=== PATIENT | female | born 1935 | race Caucasian/White ===

== ENCOUNTER 2020-06-29 15:36 | Inpatient (IN) ==
[2020-07-08] MEDS: *HR* OxyCODONE Immed Rel 5 MG TABLET PO PRN (23:07)
[2020-07-08] MEDS: Gabapentin 100 MG CAPSULE PO SCH (23:07)
[2020-07-09 05:35] LABS: Basophils % 0.1 %; Eosinophils # 0.1 K/mcL (0.0-0.6); Eosinophils % 0.7 %; Hematocrit 26.1 % (35.3-44.9); Hemoglobin 8.5 g/dL (11.5-15.4); Immature Granulocytes % 2.2 % (0-4); Lymphocytes # 1.4 K/mcL (0.6-4.6); Lymphocytes % 11.3 %; Mean Corpuscular HGB Conc 32.6 g/dL (31.6-35.5); Mean Corpuscular Hemoglobin 29.7 pg (28.0-33.3); Mean Corpuscular Volume 91.3 fL (83.0-100.0); Mean Platelet Volume 11.1 fL (9.4-12.4); Monocytes # 0.9 K/mcL (0.0-1.3); Monocytes % 7.6 %; Neutrophils # 9.5 K/mcL (1.6-8.9); Platelet Count 178 K/mcL (140-400); Red Blood Count 2.86 M/mcL (3.82-4.97); Red Cell Distribution Width 14.8 % (11.5-14.5); Segmented Neutrophils % 78.1 %; White Blood Count 12.2 K/mcL (4.3-11.1)
[2020-07-09] MEDS: *HR* Enoxaparin 40 MG/0.4 ML SYRINGE SQ SCH (05:38)
[2020-07-09] MEDS: *HR* OxyCODONE Immed Rel 5 MG TABLET PO PRN ×2 (05:38→13:34)
[2020-07-09 05:54] LABS: Alanine Aminotransferase 11 Units/L (7-52); Albumin 2.5 g/dL (3.5-5.7); Albumin/Globulin Ratio 1.4 (1.1-2.2); Alkaline Phosphatase 28 Units/L (34-104); Aspartate Amino Transferase 13 Units/L (13-39); BUN/Creatinine Ratio 26 (6-26); Bilirubin,Total 1.2 mg/dL (0.3-1.0); Blood Urea Nitrogen 20 mg/dL (8-23); Calcium 8.2 mg/dL (8.6-10.3); Carbon Dioxide 32 mEq/L (23-29); Chloride 101 mEq/L (98-107); Globulin 1.8 g/dL (2.4-3.5); Glucose 103 mg/dL (70-105); Magnesium 1.5 mg/dL (1.6-2.6); Osmolality,Calculated 287 (280-300); Sodium 137 mEq/L (136-145); Total Protein 4.3 g/dL (6.4-8.9); eGFR For African Americans > 60 (> 60); eGFR For Non-African Americans > 60 (> 60)
[2020-07-09] MEDS ORDERED: Magnesium Oxide 400 MG TABLET PO SCH (09:00)
[2020-07-09] MEDS ORDERED: Aspirin Enteric Coated 81 MG Tablet PO SCH (09:00)
[2020-07-09] MEDS: EPA PO SCH (09:21)
[2020-07-09] MEDS: FISH OIL PO SCH (09:21)
[2020-07-09] MEDS: Linaclotide [Linzess] 145 MCG PO SCH (09:21)
[2020-07-09] MEDS: DHA PO SCH (09:21)
[2020-07-09] MEDS: ZINC GLUCONATE 50 MG PO SCH (09:21)
[2020-07-09] MEDS: OMEGA PO SCH (09:21)
[2020-07-09] MEDS: Gabapentin 100 MG CAPSULE PO SCH ×2 (09:22→20:00)
[2020-07-09] MEDS: amLODIPine 5 MG TABLET PO SCH (09:22)
[2020-07-09] MEDS: allopurinoL 100 MG TABLET PO SCH (09:22)
[2020-07-09] MEDS: Cholecalciferol (D-3) 1,000 UNIT (25MCG) TABLET PO SCH (09:22)
[2020-07-09] MEDS: *HR* Metformin 500 MG TABLET PO SCH (09:23)
[2020-07-09] MEDS: Cyanocobalamin (B-12) 1,000 MCG TABLET PO SCH (09:23)
[2020-07-09] MEDS: Ascorbic Acid 500 MG TABLET PO SCH (09:23)
[2020-07-09] MEDS: Multivit/Ca/Min/Fe/FA 1 TAB TABLET PO SCH (09:23)
[2020-07-09] MEDS: Acetaminophen 325 MG TABLET PO PRN (09:34)
[2020-07-09] MEDS: predniSONE 20 MG TABLET PO SCH (17:34)
[2020-07-09] MEDS: Colchicine 0.6 MG TABLET PO SCH (20:00)
[2020-07-09] MEDS: Magnesium Oxide 400 MG TABLET PO SCH (20:01)
[2020-07-10] MEDS: *HR* Enoxaparin 40 MG/0.4 ML SYRINGE SQ SCH (05:30)
[2020-07-10] MEDS: *HR* OxyCODONE Immed Rel 5 MG TABLET PO PRN ×3 (05:32→22:22)
[2020-07-10 07:07] LABS: Basophils % 0.1 %; Hematocrit 28.6 % (35.3-44.9); Hemoglobin 9.3 g/dL (11.5-15.4); Immature Granulocytes % 1.8 % (0-4); Lymphocytes # 0.7 K/mcL (0.6-4.6); Lymphocytes % 7.3 %; Mean Corpuscular HGB Conc 32.5 g/dL (31.6-35.5); Mean Corpuscular Hemoglobin 29.9 pg (28.0-33.3); Mean Platelet Volume 10.9 fL (9.4-12.4); Monocytes # 0.4 K/mcL (0.0-1.3); Monocytes % 4.4 %; Neutrophils # 8.6 K/mcL (1.6-8.9); Platelet Count 198 K/mcL (140-400); Red Blood Count 3.11 M/mcL (3.82-4.97); Segmented Neutrophils % 86.4 %; White Blood Count 9.9 K/mcL (4.3-11.1)
[2020-07-10 07:18] LABS: Alanine Aminotransferase 14 Units/L (7-52); Albumin 2.7 g/dL (3.5-5.7); Albumin/Globulin Ratio 1.2 (1.1-2.2); Alkaline Phosphatase 36 Units/L (34-104); Aspartate Amino Transferase 16 Units/L (13-39); BUN/Creatinine Ratio 28 (6-26); Bilirubin,Total 1.2 mg/dL (0.3-1.0); Blood Urea Nitrogen 24 mg/dL (8-23); Calcium 8.7 mg/dL (8.6-10.3); Carbon Dioxide 34 mEq/L (23-29); Chloride 101 mEq/L (98-107); Globulin 2.3 g/dL (2.4-3.5); Glucose 153 mg/dL (70-105); Magnesium 1.7 mg/dL (1.6-2.6); Osmolality,Calculated 295 (280-300); Potassium 4.7 mEq/L (3.5-5.1); Sodium 139 mEq/L (136-145); eGFR For African Americans > 60 (> 60); eGFR For Non-African Americans > 60 (> 60)
[2020-07-10] MEDS: amLODIPine 5 MG TABLET PO SCH (08:59)
[2020-07-10] MEDS: Cholecalciferol (D-3) 1,000 UNIT (25MCG) TABLET PO SCH (08:59)
[2020-07-10] MEDS: Ascorbic Acid 500 MG TABLET PO SCH (09:00)
[2020-07-10] MEDS: Magnesium Oxide 400 MG TABLET PO SCH ×2 (09:00→22:22)
[2020-07-10] MEDS: allopurinoL 100 MG TABLET PO SCH (09:00)
[2020-07-10] MEDS: Gabapentin 100 MG CAPSULE PO SCH ×2 (09:00→22:22)
[2020-07-10] MEDS: Multivit/Ca/Min/Fe/FA 1 TAB TABLET PO SCH (09:00)
[2020-07-10] MEDS: Colchicine 0.6 MG TABLET PO SCH ×2 (09:01→22:22)
[2020-07-10] MEDS: Cyanocobalamin (B-12) 1,000 MCG TABLET PO SCH (09:01)
[2020-07-10] MEDS: Aspirin Enteric Coated 81 MG Tablet PO SCH (09:01)
[2020-07-10] MEDS: predniSONE 20 MG TABLET PO SCH (09:02)
[2020-07-10] MEDS: *HR* Metformin 500 MG TABLET PO SCH (09:02)
[2020-07-10] MEDS: FISH OIL PO SCH (09:03)
[2020-07-10] MEDS: Linaclotide [Linzess] 145 MCG PO SCH (09:03)
[2020-07-10] MEDS: EPA PO SCH (09:03)
[2020-07-10] MEDS: DHA PO SCH (09:03)
[2020-07-10] MEDS: OMEGA PO SCH (09:03)
[2020-07-10] MEDS: ZINC GLUCONATE 50 MG PO SCH (09:03)
[2020-07-10] MEDS: Acetaminophen 325 MG TABLET PO PRN (10:55)
[2020-07-10] MEDS ORDERED: D5% in Water 1,000 ML IVC PRN (12:55)
[2020-07-10] MEDS ORDERED: *HR* Dextrose 50 % in Water (Vial) 50 ML VIAL IVP PRN (12:55)
[2020-07-10] MEDS ORDERED: Dextrose Gel 15 GM/37.5 ML TUBE PO PRN ×2 (12:55)
[2020-07-10] MEDS: Insulin LISPRO 300 UNITS/3 ML VIAL SQ SCH ×2 (17:02→22:26)
[2020-07-11] MEDS: *HR* Enoxaparin 40 MG/0.4 ML SYRINGE SQ SCH (05:52)
[2020-07-11] MEDS: Insulin LISPRO 300 UNITS/3 ML VIAL SQ SCH ×4 (08:06→20:42)
[2020-07-11] MEDS: Colchicine 0.6 MG TABLET PO SCH ×2 (09:04→20:41)
[2020-07-11] MEDS: predniSONE 20 MG TABLET PO SCH (09:04)
[2020-07-11] MEDS: allopurinoL 100 MG TABLET PO SCH (09:04)
[2020-07-11] MEDS: ZINC GLUCONATE 50 MG PO SCH (09:05)
[2020-07-11] MEDS: Linaclotide [Linzess] 145 MCG PO SCH (09:05)
[2020-07-11] MEDS: OMEGA PO SCH (09:05)
[2020-07-11] MEDS: EPA PO SCH (09:05)
[2020-07-11] MEDS: Gabapentin 100 MG CAPSULE PO SCH ×2 (09:05→20:42)
[2020-07-11] MEDS: FISH OIL PO SCH (09:05)
[2020-07-11] MEDS: amLODIPine 5 MG TABLET PO SCH (09:05)
[2020-07-11] MEDS: *HR* Metformin 500 MG TABLET PO SCH (09:05)
[2020-07-11] MEDS: DHA PO SCH (09:05)
[2020-07-11] MEDS: Multivit/Ca/Min/Fe/FA 1 TAB TABLET PO SCH (12:11)
[2020-07-11] MEDS: Ascorbic Acid 500 MG TABLET PO SCH (12:11)
[2020-07-11] MEDS: Aspirin Enteric Coated 81 MG Tablet PO SCH (12:11)
[2020-07-11] MEDS: Cyanocobalamin (B-12) 1,000 MCG TABLET PO SCH (12:11)
[2020-07-11] MEDS: Magnesium Oxide 400 MG TABLET PO SCH ×2 (12:11→20:42)
[2020-07-11] MEDS: Cholecalciferol (D-3) 1,000 UNIT (25MCG) TABLET PO SCH (12:12)
[2020-07-11] MEDS: *HR* OxyCODONE Immed Rel 5 MG TABLET PO PRN ×2 (14:19→20:50)
[2020-07-11] MEDS: Tolterodine LA (24 HR) 2 MG CAP.ER.24H PO SCH (14:19)
[2020-07-11] MEDS: polyethylene glycoL 3350 17 GM POWD.PACK PO SCH (14:54)
[2020-07-12] MEDS: *HR* OxyCODONE Immed Rel 5 MG TABLET PO PRN ×2 (05:00→20:11)
[2020-07-12] MEDS: *HR* Enoxaparin 40 MG/0.4 ML SYRINGE SQ SCH (05:00)
[2020-07-12] MEDS: Insulin LISPRO 300 UNITS/3 ML VIAL SQ SCH ×4 (08:18→20:09)
[2020-07-12] MEDS: Magnesium Oxide 400 MG TABLET PO SCH ×2 (09:29→20:09)
[2020-07-12] MEDS: amLODIPine 5 MG TABLET PO SCH (09:29)
[2020-07-12] MEDS: Aspirin Enteric Coated 81 MG Tablet PO SCH (09:29)
[2020-07-12] MEDS: Ascorbic Acid 500 MG TABLET PO SCH (09:29)
[2020-07-12] MEDS: Gabapentin 100 MG CAPSULE PO SCH ×2 (09:29→20:09)
[2020-07-12] MEDS: Multivit/Ca/Min/Fe/FA 1 TAB TABLET PO SCH (09:29)
[2020-07-12] MEDS: *HR* Metformin 500 MG TABLET PO SCH (09:29)
[2020-07-12] MEDS: Tolterodine LA (24 HR) 2 MG CAP.ER.24H PO SCH (09:29)
[2020-07-12] MEDS: predniSONE 20 MG TABLET PO SCH (09:30)
[2020-07-12] MEDS: Cholecalciferol (D-3) 1,000 UNIT (25MCG) TABLET PO SCH (09:30)
[2020-07-12] MEDS: Cyanocobalamin (B-12) 1,000 MCG TABLET PO SCH (09:30)
[2020-07-12] MEDS: Colchicine 0.6 MG TABLET PO SCH ×2 (09:30→20:09)
[2020-07-12] MEDS: allopurinoL 100 MG TABLET PO SCH (09:30)
[2020-07-12] MEDS: EPA PO SCH (09:31)
[2020-07-12] MEDS: OMEGA PO SCH (09:31)
[2020-07-12] MEDS: FISH OIL PO SCH (09:31)
[2020-07-12] MEDS: Linaclotide [Linzess] 145 MCG PO SCH (09:31)
[2020-07-12] MEDS: ZINC GLUCONATE 50 MG PO SCH (09:31)
[2020-07-12] MEDS: DHA PO SCH (09:31)
[2020-07-12] MEDS: polyethylene glycoL 3350 17 GM POWD.PACK PO SCH (17:24)
[2020-07-13] MEDS: *HR* Enoxaparin 40 MG/0.4 ML SYRINGE SQ SCH (05:01)
[2020-07-13] MEDS: Insulin LISPRO 300 UNITS/3 ML VIAL SQ SCH ×4 (08:13→20:57)
[2020-07-13] MEDS: allopurinoL 100 MG TABLET PO SCH (09:22)
[2020-07-13] MEDS: amLODIPine 5 MG TABLET PO SCH (09:22)
[2020-07-13] MEDS: predniSONE 20 MG TABLET PO SCH (09:22)
[2020-07-13] MEDS: Gabapentin 100 MG CAPSULE PO SCH ×2 (09:22→20:56)
[2020-07-13] MEDS: Cyanocobalamin (B-12) 1,000 MCG TABLET PO SCH (09:23)
[2020-07-13] MEDS: *HR* Metformin 500 MG TABLET PO SCH (09:23)
[2020-07-13] MEDS: Ascorbic Acid 500 MG TABLET PO SCH (09:23)
[2020-07-13] MEDS: Aspirin Enteric Coated 81 MG Tablet PO SCH (09:23)
[2020-07-13] MEDS: Multivit/Ca/Min/Fe/FA 1 TAB TABLET PO SCH (09:23)
[2020-07-13] MEDS: Tolterodine LA (24 HR) 2 MG CAP.ER.24H PO SCH (09:25)
[2020-07-13] MEDS: Magnesium Oxide 400 MG TABLET PO SCH ×2 (09:25→20:56)
[2020-07-13] MEDS: Cholecalciferol (D-3) 1,000 UNIT (25MCG) TABLET PO SCH (09:25)
[2020-07-13] MEDS: ZINC GLUCONATE 50 MG PO SCH (09:26)
[2020-07-13] MEDS: FISH OIL PO SCH (09:26)
[2020-07-13] MEDS: EPA PO SCH (09:26)
[2020-07-13] MEDS: Linaclotide [Linzess] 145 MCG PO SCH (09:26)
[2020-07-13] MEDS: polyethylene glycoL 3350 17 GM POWD.PACK PO SCH (09:26)
[2020-07-13] MEDS: OMEGA PO SCH (09:26)
[2020-07-13] MEDS: DHA PO SCH (09:26)
[2020-07-13] MEDS: *HR* OxyCODONE Immed Rel 5 MG TABLET PO PRN ×2 (09:36→16:45)
[2020-07-13] MEDS ORDERED: Bisacodyl 10 MG RECTAL SUPPOSITORY RC ONE (15:00)
[2020-07-13] MEDS: Acetaminophen 325 MG TABLET PO PRN (20:56)
[2020-07-14] MEDS: *HR* Enoxaparin 40 MG/0.4 ML SYRINGE SQ SCH (05:57)
[2020-07-14] MEDS ORDERED: Linaclotide [Linzess] 145 MCG PO SCH (06:30)
[2020-07-14] MEDS: Insulin LISPRO 300 UNITS/3 ML VIAL SQ SCH ×4 (07:31→21:47)
[2020-07-14] MEDS: ZINC GLUCONATE 50 MG PO SCH (09:11)
[2020-07-14] MEDS: polyethylene glycoL 3350 17 GM POWD.PACK PO SCH (09:12)
[2020-07-14] MEDS: EPA PO SCH (09:12)
[2020-07-14] MEDS: OMEGA PO SCH (09:12)
[2020-07-14] MEDS: Multivit/Ca/Min/Fe/FA 1 TAB TABLET PO SCH (09:12)
[2020-07-14] MEDS: DHA PO SCH (09:12)
[2020-07-14] MEDS: FISH OIL PO SCH (09:12)
[2020-07-14] MEDS: Ascorbic Acid 500 MG TABLET PO SCH (09:12)
[2020-07-14] MEDS: Cyanocobalamin (B-12) 1,000 MCG TABLET PO SCH (09:13)
[2020-07-14] MEDS: *HR* Metformin 500 MG TABLET PO SCH (09:13)
[2020-07-14] MEDS: Aspirin Enteric Coated 81 MG Tablet PO SCH (09:13)
[2020-07-14] MEDS: predniSONE 20 MG TABLET PO SCH (09:13)
[2020-07-14] MEDS: amLODIPine 5 MG TABLET PO SCH (09:14)
[2020-07-14] MEDS: allopurinoL 100 MG TABLET PO SCH (09:14)
[2020-07-14] MEDS: Gabapentin 100 MG CAPSULE PO SCH ×2 (09:14→21:53)
[2020-07-14] MEDS: Magnesium Oxide 400 MG TABLET PO SCH ×2 (09:15→21:53)
[2020-07-14] MEDS: *HR* OxyCODONE Immed Rel 5 MG TABLET PO PRN ×2 (09:15→17:08)
[2020-07-14] MEDS: Cholecalciferol (D-3) 1,000 UNIT (25MCG) TABLET PO SCH (09:15)
[2020-07-14] MEDS: Tolterodine LA (24 HR) 2 MG CAP.ER.24H PO SCH (09:15)
[2020-07-14] MEDS ORDERED: polyethylene glycoL 3350 17 GM POWD.PACK PO PRN (11:43)
[2020-07-14] MEDS ORDERED: Bisacodyl 10 MG RECTAL SUPPOSITORY RC ONE (13:15)
[2020-07-14 18:24] LABS: Basophils % 0.2 %; Hematocrit 30.1 % (35.3-44.9); Hemoglobin 9.7 g/dL (11.5-15.4); Immature Granulocytes % 1.4 % (0-4); Lymphocytes % 9.2 %; Mean Corpuscular HGB Conc 32.2 g/dL (31.6-35.5); Mean Corpuscular Hemoglobin 29.9 pg (28.0-33.3); Mean Corpuscular Volume 92.9 fL (83.0-100.0); Monocytes # 0.5 K/mcL (0.0-1.3); Monocytes % 5.1 %; Platelet Count 298 K/mcL (140-400); Red Blood Count 3.24 M/mcL (3.82-4.97); Red Cell Distribution Width 15.3 % (11.5-14.5); Segmented Neutrophils % 84.1 %; White Blood Count 10.7 K/mcL (4.3-11.1)
[2020-07-14] MEDS: Acetaminophen 325 MG TABLET PO PRN (18:38)
[2020-07-14 18:44] LABS: BUN/Creatinine Ratio 49 (6-26); Blood Urea Nitrogen 45 mg/dL (8-23); Calcium 9.4 mg/dL (8.6-10.3); Carbon Dioxide 28 mEq/L (23-29); Chloride 102 mEq/L (98-107); Glucose 119 mg/dL (70-105); Osmolality,Calculated 295 (280-300); Potassium 5.4 mEq/L (3.5-5.1); Sodium 136 mEq/L (136-145); eGFR For African Americans > 60 (> 60); eGFR For Non-African Americans 58 (> 60)
[2020-07-14] MEDS: *HR* Enoxaparin 80 MG/0.8 ML SYRINGE SQ SCH (21:53)
[2020-07-15] MEDS: *HR* OxyCODONE Immed Rel 5 MG TABLET PO PRN ×3 (05:18→22:16)
[2020-07-15] MEDS: *HR* Enoxaparin 80 MG/0.8 ML SYRINGE SQ SCH ×2 (05:18→17:21)
[2020-07-15] MEDS: Insulin LISPRO 300 UNITS/3 ML VIAL SQ SCH ×4 (09:00→22:16)
[2020-07-15] MEDS: ZINC GLUCONATE 50 MG PO SCH (09:24)
[2020-07-15] MEDS: amLODIPine 5 MG TABLET PO SCH (09:25)
[2020-07-15] MEDS: Gabapentin 100 MG CAPSULE PO SCH ×2 (09:25→22:16)
[2020-07-15] MEDS: DHA PO SCH (09:25)
[2020-07-15] MEDS: Cholecalciferol (D-3) 1,000 UNIT (25MCG) TABLET PO SCH (09:25)
[2020-07-15] MEDS: Cyanocobalamin (B-12) 1,000 MCG TABLET PO SCH (09:25)
[2020-07-15] MEDS: allopurinoL 100 MG TABLET PO SCH (09:25)
[2020-07-15] MEDS: FISH OIL PO SCH (09:25)
[2020-07-15] MEDS: OMEGA PO SCH (09:25)
[2020-07-15] MEDS: Multivit/Ca/Min/Fe/FA 1 TAB TABLET PO SCH (09:25)
[2020-07-15] MEDS: Tolterodine LA (24 HR) 2 MG CAP.ER.24H PO SCH (09:25)
[2020-07-15] MEDS: EPA PO SCH (09:25)
[2020-07-15] MEDS: Ascorbic Acid 500 MG TABLET PO SCH (09:26)
[2020-07-15] MEDS: Aspirin Enteric Coated 81 MG Tablet PO SCH (09:26)
[2020-07-15] MEDS: *HR* Metformin 500 MG TABLET PO SCH (09:26)
[2020-07-15] MEDS ORDERED: 0.9 % Sodium Chloride 1,000 ML IVC SCH (10:30)
[2020-07-15 13:45] LABS: Basophils % 0.2 %; Eosinophils # 0.1 K/mcL (0.0-0.6); Eosinophils % 0.9 %; Hematocrit 32.1 % (35.3-44.9); Immature Granulocytes % 1.8 % (0-4); Lymphocytes # 1.5 K/mcL (0.6-4.6); Lymphocytes % 14.2 %; Mean Corpuscular HGB Conc 31.2 g/dL (31.6-35.5); Mean Corpuscular Hemoglobin 29.7 pg (28.0-33.3); Mean Corpuscular Volume 95.3 fL (83.0-100.0); Mean Platelet Volume 9.9 fL (9.4-12.4); Monocytes # 0.9 K/mcL (0.0-1.3); Monocytes % 8.1 %; Neutrophils # 7.9 K/mcL (1.6-8.9); Platelet Count 330 K/mcL (140-400); Red Blood Count 3.37 M/mcL (3.82-4.97); Red Cell Distribution Width 15.8 % (11.5-14.5); Segmented Neutrophils % 74.8 %; White Blood Count 10.6 K/mcL (4.3-11.1)
[2020-07-15 13:48] LABS: Prothrombin Time 11.9 Seconds (9.4-12.1)
[2020-07-15 14:00] LABS: BUN/Creatinine Ratio 46 (6-26); Blood Urea Nitrogen 46 mg/dL (8-23); Calcium 9.3 mg/dL (8.6-10.3); Carbon Dioxide 30 mEq/L (23-29); Chloride 102 mEq/L (98-107); Glucose 122 mg/dL (70-105); Osmolality,Calculated 297 (280-300); Potassium 4.6 mEq/L (3.5-5.1); Sodium 137 mEq/L (136-145); eGFR For African Americans > 60 (> 60); eGFR For Non-African Americans 53 (> 60)
[2020-07-15] MEDS: Acetaminophen 325 MG TABLET PO PRN (17:23)
[2020-07-15 23:53] LABS: Adenovirus Not Detected (Not Detect); Bordetella Pertussis Not Detected (Not Detect); Chlamydophila pneumoniae Not Detected (Not Detect); Coronavirus 229E Not Detected (Not Detect); Coronavirus HKU1 Not Detected (Not Detect); Coronavirus NL63 Not Detected (Not Detect); Coronavirus OC43 Not Detected (Not Detect); Human Metapneumovirus Not Detected (Not Detect); Human Rhinovirus/Enterovirus Not Detected (Not Detect); Influenza A Subtype 2009 H1 Not Detected (Not Detect); Influenza B Not Detected (Not Detect); Mycoplasma pneumoniae Not Detected (Not Detect); Parainfluenza Virus 1 Not Detected (Not Detect); Parainfluenza Virus 2 Not Detected (Not Detect); Parainfluenza Virus 3 Not Detected (Not Detect); Parainfluenza Virus 4 Not Detected (Not Detect); Respiratory Syncytial Virus Not Detected (Not Detect); SARS-CoV-2 Not Detected (Not Detect)
[2020-07-16] MEDS: *HR* Enoxaparin 80 MG/0.8 ML SYRINGE SQ SCH ×2 (05:56→17:55)
[2020-07-16] MEDS: *HR* OxyCODONE Immed Rel 5 MG TABLET PO PRN ×3 (05:56→17:58)
[2020-07-16] MEDS: Insulin LISPRO 300 UNITS/3 ML VIAL SQ SCH ×4 (07:42→21:06)
[2020-07-16] MEDS: Gabapentin 100 MG CAPSULE PO SCH ×2 (08:36→21:05)
[2020-07-16] MEDS: Cholecalciferol (D-3) 1,000 UNIT (25MCG) TABLET PO SCH (08:36)
[2020-07-16] MEDS: allopurinoL 100 MG TABLET PO SCH (08:36)
[2020-07-16] MEDS: amLODIPine 5 MG TABLET PO SCH (08:37)
[2020-07-16] MEDS: *HR* Metformin 500 MG TABLET PO SCH (08:37)
[2020-07-16] MEDS: Aspirin Enteric Coated 81 MG Tablet PO SCH (08:37)
[2020-07-16] MEDS: Multivit/Ca/Min/Fe/FA 1 TAB TABLET PO SCH (08:37)
[2020-07-16] MEDS: Ascorbic Acid 500 MG TABLET PO SCH (08:37)
[2020-07-16] MEDS: Tolterodine LA (24 HR) 2 MG CAP.ER.24H PO SCH (08:37)
[2020-07-16] MEDS: Cyanocobalamin (B-12) 1,000 MCG TABLET PO SCH (08:38)
[2020-07-16] MEDS: EPA PO SCH (08:46)
[2020-07-16] MEDS: OMEGA PO SCH (08:46)
[2020-07-16] MEDS: FISH OIL PO SCH (08:46)
[2020-07-16] MEDS: DHA PO SCH (08:46)
[2020-07-16] MEDS: ZINC GLUCONATE 50 MG PO SCH (08:47)
[2020-07-16] MEDS: Acetaminophen 325 MG TABLET PO PRN ×2 (10:25→21:05)
[2020-07-16 10:28] LABS: Basophils % 0.2 %; Eosinophils # 0.1 K/mcL (0.0-0.6); Eosinophils % 1.3 %; Hematocrit 30.3 % (35.3-44.9); Hemoglobin 9.4 g/dL (11.5-15.4); Immature Granulocytes % 1.3 % (0-4); Lymphocytes # 1.2 K/mcL (0.6-4.6); Lymphocytes % 12.9 %; Mean Corpuscular Hemoglobin 29.7 pg (28.0-33.3); Mean Corpuscular Volume 95.6 fL (83.0-100.0); Mean Platelet Volume 10.3 fL (9.4-12.4); Monocytes # 0.7 K/mcL (0.0-1.3); Monocytes % 7.1 %; Neutrophils # 7.1 K/mcL (1.6-8.9); Platelet Count 267 K/mcL (140-400); Red Blood Count 3.17 M/mcL (3.82-4.97); Segmented Neutrophils % 77.2 %; White Blood Count 9.1 K/mcL (4.3-11.1)
[2020-07-16 10:32] LABS: INR 1.1; Prothrombin Time 12.2 Seconds (9.4-12.1)
[2020-07-16 10:43] LABS: BUN/Creatinine Ratio 46 (6-26); Blood Urea Nitrogen 44 mg/dL (8-23); Calcium 8.6 mg/dL (8.6-10.3); Carbon Dioxide 25 mEq/L (23-29); Chloride 104 mEq/L (98-107); Glucose 153 mg/dL (70-105); Osmolality,Calculated 296 (280-300); Sodium 136 mEq/L (136-145); eGFR For African Americans > 60 (> 60); eGFR For Non-African Americans 56 (> 60)
[2020-07-16] MEDS ORDERED: Warfarin perPT PO PRN (18:00)
[2020-07-16] MEDS ORDERED: *HR* Warfarin 2.5 MG TABLET PO ONE (18:00)
[2020-07-17] MEDS: *HR* Enoxaparin 80 MG/0.8 ML SYRINGE SQ SCH ×2 (04:41→17:37)
[2020-07-17] MEDS: *HR* OxyCODONE Immed Rel 5 MG TABLET PO PRN ×4 (04:42→21:06)
[2020-07-17 06:53] LABS: INR 1.1; Prothrombin Time 12.5 Seconds (9.4-12.1)
[2020-07-17] MEDS: amLODIPine 5 MG TABLET PO SCH (08:54)
[2020-07-17] MEDS: Gabapentin 100 MG CAPSULE PO SCH ×2 (08:56→21:06)
[2020-07-17] MEDS: Ascorbic Acid 500 MG TABLET PO SCH (08:56)
[2020-07-17] MEDS: Multivit/Ca/Min/Fe/FA 1 TAB TABLET PO SCH (08:56)
[2020-07-17] MEDS: Tolterodine LA (24 HR) 2 MG CAP.ER.24H PO SCH (08:56)
[2020-07-17] MEDS: Cholecalciferol (D-3) 1,000 UNIT (25MCG) TABLET PO SCH (08:56)
[2020-07-17] MEDS: Aspirin Enteric Coated 81 MG Tablet PO SCH (08:56)
[2020-07-17] MEDS: *HR* Metformin 500 MG TABLET PO SCH (08:57)
[2020-07-17] MEDS: allopurinoL 100 MG TABLET PO SCH (08:57)
[2020-07-17] MEDS: Insulin LISPRO 300 UNITS/3 ML VIAL SQ SCH ×4 (08:57→21:06)
[2020-07-17] MEDS: Cyanocobalamin (B-12) 1,000 MCG TABLET PO SCH (08:58)
[2020-07-17] MEDS: FISH OIL PO SCH (08:59)
[2020-07-17] MEDS: DHA PO SCH (08:59)
[2020-07-17] MEDS: EPA PO SCH (08:59)
[2020-07-17] MEDS: OMEGA PO SCH (08:59)
[2020-07-17] MEDS: ZINC GLUCONATE 50 MG PO SCH (09:00)
[2020-07-17] MEDS: Acetaminophen 325 MG TABLET PO PRN (16:44)
[2020-07-17] MEDS ORDERED: *HR* Warfarin 2.5 MG TABLET PO ONE (18:00)
[2020-07-18] MEDS: *HR* OxyCODONE Immed Rel 5 MG TABLET PO PRN ×5 (04:39→21:26)
[2020-07-18] MEDS: *HR* Enoxaparin 80 MG/0.8 ML SYRINGE SQ SCH ×2 (04:40→17:14)
[2020-07-18] MEDS: Acetaminophen 325 MG TABLET PO PRN ×2 (08:34→20:17)
[2020-07-18] MEDS: allopurinoL 100 MG TABLET PO SCH (08:35)
[2020-07-18] MEDS: amLODIPine 5 MG TABLET PO SCH (08:35)
[2020-07-18] MEDS: Gabapentin 100 MG CAPSULE PO SCH ×2 (08:36→20:17)
[2020-07-18] MEDS: Cholecalciferol (D-3) 1,000 UNIT (25MCG) TABLET PO SCH (08:36)
[2020-07-18] MEDS: *HR* Metformin 500 MG TABLET PO SCH (08:36)
[2020-07-18] MEDS: Insulin LISPRO 300 UNITS/3 ML VIAL SQ SCH ×4 (08:37→20:13)
[2020-07-18] MEDS: Tolterodine LA (24 HR) 2 MG CAP.ER.24H PO SCH (08:37)
[2020-07-18] MEDS: Ascorbic Acid 500 MG TABLET PO SCH (08:37)
[2020-07-18] MEDS: Aspirin Enteric Coated 81 MG Tablet PO SCH (08:37)
[2020-07-18] MEDS: ZINC GLUCONATE 50 MG PO SCH (08:38)
[2020-07-18] MEDS: Cyanocobalamin (B-12) 1,000 MCG TABLET PO SCH (08:38)
[2020-07-18] MEDS: Multivit/Ca/Min/Fe/FA 1 TAB TABLET PO SCH (08:38)
[2020-07-18] MEDS: EPA PO SCH (08:39)
[2020-07-18] MEDS: DHA PO SCH (08:39)
[2020-07-18] MEDS: FISH OIL PO SCH (08:39)
[2020-07-18] MEDS: OMEGA PO SCH (08:39)
[2020-07-18 12:05] LABS: INR 1.1; Prothrombin Time 12.8 Seconds (9.4-12.1)
[2020-07-18] MEDS ORDERED: *HR* Warfarin 3 MG TABLET PO ONE (18:00)
[2020-07-19] MEDS: *HR* OxyCODONE Immed Rel 5 MG TABLET PO PRN ×2 (01:47→09:24)
[2020-07-19] MEDS: Acetaminophen 325 MG TABLET PO PRN (04:47)
[2020-07-19] MEDS: *HR* Enoxaparin 80 MG/0.8 ML SYRINGE SQ SCH (04:47)
[2020-07-19] MEDS ORDERED: Morphine Sulfate Oral CONC 10 MG/0.5 ML ORAL.SYG SL STA (04:55)
[2020-07-19 05:04] LABS: INR 1.2; Prothrombin Time 13.1 Seconds (9.4-12.1)
[2020-07-19 05:15] LABS: Calcium 8.4 mg/dL (8.6-10.3); Potassium 5.7 mEq/L (3.5-5.1)
[2020-07-19 05:21] LABS: Basophils % 0.1 %; Eosinophils % 0.2 %; Hematocrit 18.8 % (35.3-44.9); Immature Granulocytes % 1.1 % (0-4); Lymphocytes # 1.8 K/mcL (0.6-4.6); Lymphocytes % 16.5 %; Mean Corpuscular HGB Conc 31.4 g/dL (31.6-35.5); Mean Corpuscular Hemoglobin 30.3 pg (28.0-33.3); Mean Corpuscular Volume 96.4 fL (83.0-100.0); Mean Platelet Volume 10.8 fL (9.4-12.4); Monocytes # 0.9 K/mcL (0.0-1.3); Monocytes % 8.1 %; Neutrophils # 7.9 K/mcL (1.6-8.9); Platelet Count 164 K/mcL (140-400); Red Blood Count 1.95 M/mcL (3.82-4.97); White Blood Count 10.6 K/mcL (4.3-11.1)
[2020-07-19 05:25] LABS: Hemoglobin 5.9 g/dL (11.5-15.4)
[2020-07-19 05:49] LABS: Basophils % 0.1 %; Eosinophils % 0.1 %; Hematocrit 17.7 % (35.3-44.9); Immature Granulocytes % 1.1 % (0-4); Lymphocytes # 0.9 K/mcL (0.6-4.6); Lymphocytes % 8.4 %; Mean Corpuscular HGB Conc 31.1 g/dL (31.6-35.5); Mean Corpuscular Hemoglobin 29.7 pg (28.0-33.3); Mean Corpuscular Volume 95.7 fL (83.0-100.0); Mean Platelet Volume 10.4 fL (9.4-12.4); Monocytes # 0.8 K/mcL (0.0-1.3); Monocytes % 7.8 %; Neutrophils # 8.5 K/mcL (1.6-8.9); Platelet Count 151 K/mcL (140-400); Red Blood Count 1.85 M/mcL (3.82-4.97); Segmented Neutrophils % 82.5 %; White Blood Count 10.3 K/mcL (4.3-11.1)
[2020-07-19 05:54] LABS: INR 1.2; Prothrombin Time 13.1 Seconds (9.4-12.1)
[2020-07-19 05:59] LABS: Hemoglobin 5.5 g/dL (11.5-15.4)
[2020-07-19] MEDS ORDERED: Furosemide 20 MG/2 ML VIAL IVP PRN (07:09)
[2020-07-19] MEDS ORDERED: 0.9 % Sodium Chloride 1,000 ML IVC SCH (07:15)
[2020-07-19] MEDS: ZINC GLUCONATE 50 MG PO SCH (09:08)
[2020-07-19] MEDS: amLODIPine 5 MG TABLET PO SCH (09:08)
[2020-07-19] MEDS: Insulin LISPRO 300 UNITS/3 ML VIAL SQ SCH (09:26)
[2020-07-19] MEDS: Cholecalciferol (D-3) 1,000 UNIT (25MCG) TABLET PO SCH (09:31)
[2020-07-19] MEDS: Ascorbic Acid 500 MG TABLET PO SCH (09:31)
[2020-07-19] MEDS: Gabapentin 100 MG CAPSULE PO SCH (09:31)
[2020-07-19] MEDS: Cyanocobalamin (B-12) 1,000 MCG TABLET PO SCH (09:32)
[2020-07-19] MEDS: *HR* Metformin 500 MG TABLET PO SCH (09:32)
[2020-07-19] MEDS: Multivit/Ca/Min/Fe/FA 1 TAB TABLET PO SCH (09:32)
[2020-07-19] MEDS: allopurinoL 100 MG TABLET PO SCH (09:32)
[2020-07-19] MEDS: Tolterodine LA (24 HR) 2 MG CAP.ER.24H PO SCH (09:32)
[2020-07-19] MEDS: FISH OIL PO SCH (09:34)
[2020-07-19] MEDS: DHA PO SCH (09:34)
[2020-07-19] MEDS: EPA PO SCH (09:34)
[2020-07-19] MEDS: OMEGA PO SCH (09:34)
[2020-07-19] MEDS ORDERED: 0.9 % Sodium Chloride 250 ML ONE (12:03)
[2020-07-19] MEDS ORDERED: Morphine Sulfate 2 MG/ML SYRINGE IVP ONE (12:17)
[2020-07-19 12:25] VITALS: BP 134/69
== END 2020-07-19 12:40 | disposition short-term general hospital (02) | DRG 560 ==
LOC: INPGRE 07-08 16:00
PROVIDERS: ADMIT Family Medicine; ATTEND Family Medicine

== ENCOUNTER 2020-07-20 19:03 | Inpatient (IN) ==
[2020-07-23] MEDS ORDERED: *HR* Dextrose 50 % in Water (Vial) 50 ML VIAL IVP PRN (18:08)
[2020-07-23] MEDS ORDERED: Dextrose Gel 15 GM/37.5 ML TUBE PO PRN ×2 (18:08)
[2020-07-23] MEDS ORDERED: D5% in Water 1,000 ML IVC PRN (18:08)
[2020-07-23] MEDS: Insulin LISPRO 300 UNITS/3 ML VIAL SQ SCH (20:41)
[2020-07-23] MEDS: Gabapentin 100 MG CAPSULE PO SCH (20:50)
[2020-07-24 00:41] LABS: Basophils % 0.1 %; Eosinophils # 0.1 K/mcL (0.0-0.6); Eosinophils % 1.6 %; Hematocrit 24.5 % (35.3-44.9); Hemoglobin 7.9 g/dL (11.5-15.4); Lymphocytes # 1.2 K/mcL (0.6-4.6); Lymphocytes % 16.4 %; Mean Corpuscular HGB Conc 32.2 g/dL (31.6-35.5); Mean Corpuscular Hemoglobin 29.8 pg (28.0-33.3); Mean Corpuscular Volume 92.5 fL (83.0-100.0); Mean Platelet Volume 9.6 fL (9.4-12.4); Monocytes # 0.5 K/mcL (0.0-1.3); Monocytes % 6.1 %; Neutrophils # 5.4 K/mcL (1.6-8.9); Platelet Count 135 K/mcL (140-400); Red Blood Count 2.65 M/mcL (3.82-4.97); Red Cell Distribution Width 16.4 % (11.5-14.5); Segmented Neutrophils % 73.8 %; White Blood Count 7.4 K/mcL (4.3-11.1)
[2020-07-24 01:17] LABS: Alkaline Phosphatase 55 Units/L (34-104); BUN/Creatinine Ratio 33 (6-26); Bilirubin,Total 1.6 mg/dL (0.3-1.0); Blood Urea Nitrogen 32 mg/dL (8-23); Calcium 7.9 mg/dL (8.6-10.3); Carbon Dioxide 29 mEq/L (23-29); Chloride 106 mEq/L (98-107); Glucose 122 mg/dL (70-105); Magnesium 1.9 mg/dL (1.6-2.6); Osmolality,Calculated 296 (280-300); Potassium 4.5 mEq/L (3.5-5.1); Sodium 139 mEq/L (136-145); eGFR For African Americans > 60 (> 60); eGFR For Non-African Americans 55 (> 60)
[2020-07-24 01:18] LABS: Alanine Aminotransferase 28 Units/L (7-52); Albumin 2.5 g/dL (3.5-5.7); Albumin/Globulin Ratio 1.6 (1.1-2.2); Aspartate Amino Transferase 25 Units/L (13-39); Globulin 1.6 g/dL (2.4-3.5); Total Protein 4.1 g/dL (6.4-8.9)
[2020-07-24 07:29] LABS: Hematocrit 25.7 % (35.3-44.9); Hemoglobin 8.3 g/dL (11.5-15.4)
[2020-07-24] MEDS: Insulin LISPRO 300 UNITS/3 ML VIAL SQ SCH ×4 (08:07→20:24)
[2020-07-24] MEDS: Multivit/Ca/Min/Fe/FA 1 TAB TABLET PO SCH (08:41)
[2020-07-24] MEDS: Cholecalciferol (D-3) 1,000 UNIT (25MCG) TABLET PO SCH (08:41)
[2020-07-24] MEDS: *HR* Metformin 500 MG TABLET PO SCH (08:42)
[2020-07-24] MEDS: allopurinoL 100 MG TABLET PO SCH (08:42)
[2020-07-24] MEDS: *HR* OxyCODONE/APAP 10/325 TABLET PO PRN ×2 (08:42→20:22)
[2020-07-24] MEDS: Ascorbic Acid 500 MG TABLET PO SCH (08:42)
[2020-07-24] MEDS: amLODIPine 5 MG TABLET PO SCH (08:42)
[2020-07-24] MEDS: Gabapentin 100 MG CAPSULE PO SCH ×2 (08:43→20:22)
[2020-07-24] MEDS: Cyanocobalamin (B-12) 1,000 MCG TABLET PO SCH (08:43)
[2020-07-25 05:44] LABS: Hematocrit 24.8 % (35.3-44.9); Hemoglobin 7.8 g/dL (11.5-15.4); Mean Corpuscular HGB Conc 31.5 g/dL (31.6-35.5); Mean Corpuscular Hemoglobin 29.4 pg (28.0-33.3); Mean Corpuscular Volume 93.6 fL (83.0-100.0); Mean Platelet Volume 9.8 fL (9.4-12.4); Platelet Count 149 K/mcL (140-400); Red Blood Count 2.65 M/mcL (3.82-4.97); Red Cell Distribution Width 15.9 % (11.5-14.5)
[2020-07-25 05:58] LABS: Alanine Aminotransferase 27 Units/L (7-52); Albumin 2.5 g/dL (3.5-5.7); Albumin/Globulin Ratio 1.3 (1.1-2.2); Alkaline Phosphatase 46 Units/L (34-104); Aspartate Amino Transferase 22 Units/L (13-39); BUN/Creatinine Ratio 33 (6-26); Bilirubin,Total 1.6 mg/dL (0.3-1.0); Blood Urea Nitrogen 25 mg/dL (8-23); Calcium 7.9 mg/dL (8.6-10.3); Carbon Dioxide 28 mEq/L (23-29); Chloride 106 mEq/L (98-107); Globulin 1.9 g/dL (2.4-3.5); Glucose 107 mg/dL (70-105); Magnesium 1.6 mg/dL (1.6-2.6); Osmolality,Calculated 293 (280-300); Potassium 4.3 mEq/L (3.5-5.1); Sodium 139 mEq/L (136-145); Total Protein 4.4 g/dL (6.4-8.9); eGFR For African Americans > 60 (> 60); eGFR For Non-African Americans > 60 (> 60)
[2020-07-25] MEDS: Insulin LISPRO 300 UNITS/3 ML VIAL SQ SCH ×4 (07:46→22:43)
[2020-07-25] MEDS: Cholecalciferol (D-3) 1,000 UNIT (25MCG) TABLET PO SCH (09:20)
[2020-07-25] MEDS: Ascorbic Acid 500 MG TABLET PO SCH (09:21)
[2020-07-25] MEDS: Magnesium Oxide 400 MG TABLET PO SCH (09:21)
[2020-07-25] MEDS: allopurinoL 100 MG TABLET PO SCH (09:21)
[2020-07-25] MEDS: Multivit/Ca/Min/Fe/FA 1 TAB TABLET PO SCH (09:21)
[2020-07-25] MEDS: Cyanocobalamin (B-12) 1,000 MCG TABLET PO SCH (09:21)
[2020-07-25] MEDS: amLODIPine 5 MG TABLET PO SCH (09:21)
[2020-07-25] MEDS: Gabapentin 100 MG CAPSULE PO SCH ×2 (09:21→19:48)
[2020-07-25] MEDS: *HR* Metformin 500 MG TABLET PO SCH (09:21)
[2020-07-25] MEDS: *HR* OxyCODONE/APAP 10/325 TABLET PO PRN ×2 (09:28→19:47)
[2020-07-26 04:57] LABS: Hematocrit 25.4 % (35.3-44.9); Hemoglobin 7.8 g/dL (11.5-15.4); Mean Corpuscular HGB Conc 30.7 g/dL (31.6-35.5); Mean Corpuscular Hemoglobin 29.2 pg (28.0-33.3); Mean Corpuscular Volume 95.1 fL (83.0-100.0); Mean Platelet Volume 9.9 fL (9.4-12.4); Platelet Count 134 K/mcL (140-400); Red Blood Count 2.67 M/mcL (3.82-4.97); Red Cell Distribution Width 15.7 % (11.5-14.5); White Blood Count 6.1 K/mcL (4.3-11.1)
[2020-07-26] MEDS: *HR* OxyCODONE/APAP 10/325 TABLET PO PRN ×2 (06:44→20:23)
[2020-07-26] MEDS: Insulin LISPRO 300 UNITS/3 ML VIAL SQ SCH ×4 (08:00→20:21)
[2020-07-26] MEDS: amLODIPine 5 MG TABLET PO SCH (08:04)
[2020-07-26] MEDS: *HR* Metformin 500 MG TABLET PO SCH (08:04)
[2020-07-26] MEDS: Ascorbic Acid 500 MG TABLET PO SCH (08:04)
[2020-07-26] MEDS: Multivit/Ca/Min/Fe/FA 1 TAB TABLET PO SCH (08:04)
[2020-07-26] MEDS: Gabapentin 100 MG CAPSULE PO SCH ×2 (08:04→20:22)
[2020-07-26] MEDS: Cholecalciferol (D-3) 1,000 UNIT (25MCG) TABLET PO SCH (08:04)
[2020-07-26] MEDS: Cyanocobalamin (B-12) 1,000 MCG TABLET PO SCH (08:04)
[2020-07-26] MEDS: allopurinoL 100 MG TABLET PO SCH (08:04)
[2020-07-27 08:03] LABS: Basophils % 0.2 %; Eosinophils # 0.1 K/mcL (0.0-0.6); Hematocrit 26.2 % (35.3-44.9); Hemoglobin 8.2 g/dL (11.5-15.4); Immature Granulocytes % 1.5 % (0-4); Lymphocytes # 1.3 K/mcL (0.6-4.6); Lymphocytes % 21.2 %; Mean Corpuscular HGB Conc 31.3 g/dL (31.6-35.5); Mean Corpuscular Hemoglobin 29.6 pg (28.0-33.3); Mean Corpuscular Volume 94.6 fL (83.0-100.0); Mean Platelet Volume 10.2 fL (9.4-12.4); Monocytes # 0.3 K/mcL (0.0-1.3); Monocytes % 5.3 %; Neutrophils # 4.3 K/mcL (1.6-8.9); Platelet Count 142 K/mcL (140-400); Red Blood Count 2.77 M/mcL (3.82-4.97); Red Cell Distribution Width 15.4 % (11.5-14.5); Segmented Neutrophils % 70.8 %
[2020-07-27] MEDS: Insulin LISPRO 300 UNITS/3 ML VIAL SQ SCH ×4 (08:18→23:36)
[2020-07-27] MEDS: Gabapentin 100 MG CAPSULE PO SCH ×2 (08:19→19:35)
[2020-07-27] MEDS: Cholecalciferol (D-3) 1,000 UNIT (25MCG) TABLET PO SCH (08:19)
[2020-07-27] MEDS: Magnesium Oxide 400 MG TABLET PO SCH (08:19)
[2020-07-27] MEDS: Multivit/Ca/Min/Fe/FA 1 TAB TABLET PO SCH (08:19)
[2020-07-27] MEDS: *HR* Metformin 500 MG TABLET PO SCH (08:19)
[2020-07-27] MEDS: Ascorbic Acid 500 MG TABLET PO SCH (08:19)
[2020-07-27] MEDS: Cyanocobalamin (B-12) 1,000 MCG TABLET PO SCH (08:19)
[2020-07-27] MEDS: amLODIPine 5 MG TABLET PO SCH (08:19)
[2020-07-27] MEDS: allopurinoL 100 MG TABLET PO SCH (08:19)
[2020-07-27] MEDS: *HR* OxyCODONE/APAP 10/325 TABLET PO PRN ×2 (12:11→19:35)
[2020-07-28] MEDS: *HR* OxyCODONE/APAP 10/325 TABLET PO PRN ×3 (04:47→21:22)
[2020-07-28] MEDS: Insulin LISPRO 300 UNITS/3 ML VIAL SQ SCH ×4 (08:43→21:22)
[2020-07-28] MEDS: Cholecalciferol (D-3) 1,000 UNIT (25MCG) TABLET PO SCH (08:48)
[2020-07-28] MEDS: amLODIPine 5 MG TABLET PO SCH (08:49)
[2020-07-28] MEDS: Cyanocobalamin (B-12) 1,000 MCG TABLET PO SCH (08:49)
[2020-07-28] MEDS: Gabapentin 100 MG CAPSULE PO SCH ×2 (08:49→21:22)
[2020-07-28] MEDS: *HR* Metformin 500 MG TABLET PO SCH (08:49)
[2020-07-28] MEDS: allopurinoL 100 MG TABLET PO SCH (08:49)
[2020-07-28] MEDS: Ascorbic Acid 500 MG TABLET PO SCH (08:49)
[2020-07-28] MEDS: Multivit/Ca/Min/Fe/FA 1 TAB TABLET PO SCH (08:49)
[2020-07-29 06:12] LABS: Basophils % 0.2 %; Eosinophils # 0.1 K/mcL (0.0-0.6); Eosinophils % 1.6 %; Hematocrit 23.8 % (35.3-44.9); Hemoglobin 7.3 g/dL (11.5-15.4); Immature Granulocytes % 1.8 % (0-4); Lymphocytes # 1.3 K/mcL (0.6-4.6); Lymphocytes % 27.1 %; Mean Corpuscular HGB Conc 30.7 g/dL (31.6-35.5); Mean Corpuscular Hemoglobin 29.3 pg (28.0-33.3); Mean Corpuscular Volume 95.6 fL (83.0-100.0); Mean Platelet Volume 10.8 fL (9.4-12.4); Monocytes # 0.3 K/mcL (0.0-1.3); Monocytes % 6.5 %; Neutrophils # 3.1 K/mcL (1.6-8.9); Platelet Count 147 K/mcL (140-400); Red Blood Count 2.49 M/mcL (3.82-4.97); Red Cell Distribution Width 15.5 % (11.5-14.5); Segmented Neutrophils % 62.8 %; White Blood Count 4.9 K/mcL (4.3-11.1)
[2020-07-29 06:26] LABS: BUN/Creatinine Ratio 38 (6-26); Blood Urea Nitrogen 36 mg/dL (8-23); Calcium 7.8 mg/dL (8.6-10.3); Carbon Dioxide 30 mEq/L (23-29); Chloride 105 mEq/L (98-107); Glucose 108 mg/dL (70-105); Osmolality,Calculated 295 (280-300); Potassium 4.5 mEq/L (3.5-5.1); Sodium 138 mEq/L (136-145); eGFR For African Americans > 60 (> 60); eGFR For Non-African Americans 56 (> 60)
[2020-07-29] MEDS: Insulin LISPRO 300 UNITS/3 ML VIAL SQ SCH ×4 (07:48→21:05)
[2020-07-29] MEDS: *HR* OxyCODONE/APAP 10/325 TABLET PO PRN ×2 (09:47→18:47)
[2020-07-29] MEDS: Cyanocobalamin (B-12) 1,000 MCG TABLET PO SCH (09:48)
[2020-07-29] MEDS: *HR* Metformin 500 MG TABLET PO SCH (09:48)
[2020-07-29] MEDS: Cholecalciferol (D-3) 1,000 UNIT (25MCG) TABLET PO SCH (09:48)
[2020-07-29] MEDS: Magnesium Oxide 400 MG TABLET PO SCH (09:48)
[2020-07-29] MEDS: allopurinoL 100 MG TABLET PO SCH (09:49)
[2020-07-29] MEDS: Gabapentin 100 MG CAPSULE PO SCH ×2 (09:49→21:09)
[2020-07-29] MEDS: Ascorbic Acid 500 MG TABLET PO SCH (09:49)
[2020-07-29] MEDS: amLODIPine 5 MG TABLET PO SCH (09:50)
[2020-07-29] MEDS: Multivit/Ca/Min/Fe/FA 1 TAB TABLET PO SCH (09:50)
[2020-07-30] MEDS: Ascorbic Acid 500 MG TABLET PO SCH (08:29)
[2020-07-30] MEDS: allopurinoL 100 MG TABLET PO SCH (08:29)
[2020-07-30] MEDS: *HR* Metformin 500 MG TABLET PO SCH (08:29)
[2020-07-30] MEDS: amLODIPine 5 MG TABLET PO SCH (08:29)
[2020-07-30] MEDS: Multivit/Ca/Min/Fe/FA 1 TAB TABLET PO SCH (08:30)
[2020-07-30] MEDS: Gabapentin 100 MG CAPSULE PO SCH ×2 (08:30→21:12)
[2020-07-30] MEDS: Cyanocobalamin (B-12) 1,000 MCG TABLET PO SCH (08:30)
[2020-07-30] MEDS: Cholecalciferol (D-3) 1,000 UNIT (25MCG) TABLET PO SCH (08:30)
[2020-07-30] MEDS: Insulin LISPRO 300 UNITS/3 ML VIAL SQ SCH ×4 (08:31→21:12)
[2020-07-30] MEDS: *HR* OxyCODONE/APAP 10/325 TABLET PO PRN ×2 (08:51→17:17)
[2020-07-30 09:24] LABS: Eosinophils % 0.6 %; Hematocrit 27.5 % (35.3-44.9); Hemoglobin 8.4 g/dL (11.5-15.4); Immature Granulocytes % 1.3 % (0-4); Lymphocytes # 1.5 K/mcL (0.6-4.6); Lymphocytes % 28.4 %; Mean Corpuscular HGB Conc 30.5 g/dL (31.6-35.5); Mean Corpuscular Hemoglobin 28.9 pg (28.0-33.3); Mean Corpuscular Volume 94.5 fL (83.0-100.0); Mean Platelet Volume 10.5 fL (9.4-12.4); Monocytes # 0.3 K/mcL (0.0-1.3); Monocytes % 4.6 %; Neutrophils # 3.5 K/mcL (1.6-8.9); Platelet Count 169 K/mcL (140-400); Red Blood Count 2.91 M/mcL (3.82-4.97); Red Cell Distribution Width 15.5 % (11.5-14.5); Segmented Neutrophils % 65.1 %; White Blood Count 5.4 K/mcL (4.3-11.1)
[2020-07-31] MEDS: Insulin LISPRO 300 UNITS/3 ML VIAL SQ SCH ×4 (09:10→21:07)
[2020-07-31] MEDS: Cholecalciferol (D-3) 1,000 UNIT (25MCG) TABLET PO SCH (09:12)
[2020-07-31] MEDS: amLODIPine 5 MG TABLET PO SCH (09:12)
[2020-07-31] MEDS: allopurinoL 100 MG TABLET PO SCH (09:12)
[2020-07-31] MEDS: Magnesium Oxide 400 MG TABLET PO SCH (09:12)
[2020-07-31] MEDS: Cyanocobalamin (B-12) 1,000 MCG TABLET PO SCH (09:12)
[2020-07-31] MEDS: Gabapentin 100 MG CAPSULE PO SCH ×2 (09:12→21:18)
[2020-07-31] MEDS: Ascorbic Acid 500 MG TABLET PO SCH (09:12)
[2020-07-31] MEDS: Multivit/Ca/Min/Fe/FA 1 TAB TABLET PO SCH (09:12)
[2020-07-31] MEDS: *HR* Metformin 500 MG TABLET PO SCH (09:13)
[2020-07-31] MEDS: *HR* OxyCODONE/APAP 10/325 TABLET PO PRN (14:32)
[2020-08-01] MEDS: Insulin LISPRO 300 UNITS/3 ML VIAL SQ SCH ×4 (08:08→20:34)
[2020-08-01] MEDS: Cholecalciferol (D-3) 1,000 UNIT (25MCG) TABLET PO SCH (08:14)
[2020-08-01] MEDS: Ascorbic Acid 500 MG TABLET PO SCH (08:14)
[2020-08-01] MEDS: Multivit/Ca/Min/Fe/FA 1 TAB TABLET PO SCH (08:14)
[2020-08-01] MEDS: amLODIPine 5 MG TABLET PO SCH (08:14)
[2020-08-01] MEDS: Cyanocobalamin (B-12) 1,000 MCG TABLET PO SCH (08:14)
[2020-08-01] MEDS: allopurinoL 100 MG TABLET PO SCH (08:14)
[2020-08-01] MEDS: Gabapentin 100 MG CAPSULE PO SCH ×2 (08:14→20:34)
[2020-08-01] MEDS: *HR* Metformin 500 MG TABLET PO SCH (08:14)
[2020-08-01] MEDS: *HR* OxyCODONE/APAP 10/325 TABLET PO PRN ×2 (12:18→20:34)
[2020-08-02 05:19] LABS: Basophils % 0.4 %; Eosinophils % 0.6 %; Hematocrit 24.8 % (35.3-44.9); Hemoglobin 7.6 g/dL (11.5-15.4); Immature Granulocytes % 3.9 % (0-4); Lymphocytes # 1.6 K/mcL (0.6-4.6); Mean Corpuscular HGB Conc 30.6 g/dL (31.6-35.5); Mean Corpuscular Hemoglobin 29.2 pg (28.0-33.3); Mean Corpuscular Volume 95.4 fL (83.0-100.0); Mean Platelet Volume 10.5 fL (9.4-12.4); Monocytes # 0.4 K/mcL (0.0-1.3); Monocytes % 7.2 %; Neutrophils # 2.7 K/mcL (1.6-8.9); Platelet Count 169 K/mcL (140-400); Segmented Neutrophils % 55.9 %; White Blood Count 4.8 K/mcL (4.3-11.1)
[2020-08-02 05:31] LABS: BUN/Creatinine Ratio 35 (6-26); Blood Urea Nitrogen 24 mg/dL (8-23); Calcium 8.2 mg/dL (8.6-10.3); Carbon Dioxide 31 mEq/L (23-29); Chloride 105 mEq/L (98-107); Glucose 106 mg/dL (70-105); Osmolality,Calculated 294 (280-300); Potassium 4.5 mEq/L (3.5-5.1); Sodium 140 mEq/L (136-145); eGFR For African Americans > 60 (> 60); eGFR For Non-African Americans > 60 (> 60)
[2020-08-02] MEDS: Insulin LISPRO 300 UNITS/3 ML VIAL SQ SCH ×4 (07:47→20:32)
[2020-08-02] MEDS: Magnesium Oxide 400 MG TABLET PO SCH (08:44)
[2020-08-02] MEDS: *HR* Metformin 500 MG TABLET PO SCH (08:44)
[2020-08-02] MEDS: amLODIPine 5 MG TABLET PO SCH (08:44)
[2020-08-02] MEDS: Cholecalciferol (D-3) 1,000 UNIT (25MCG) TABLET PO SCH (08:45)
[2020-08-02] MEDS: Gabapentin 100 MG CAPSULE PO SCH ×2 (08:45→20:31)
[2020-08-02] MEDS: Ascorbic Acid 500 MG TABLET PO SCH (08:45)
[2020-08-02] MEDS: allopurinoL 100 MG TABLET PO SCH (08:45)
[2020-08-02] MEDS: Cyanocobalamin (B-12) 1,000 MCG TABLET PO SCH (08:45)
[2020-08-02] MEDS: Multivit/Ca/Min/Fe/FA 1 TAB TABLET PO SCH (08:45)
[2020-08-02] MEDS: *HR* OxyCODONE/APAP 10/325 TABLET PO PRN ×2 (08:58→17:10)
[2020-08-03] MEDS: *HR* Metformin 500 MG TABLET PO SCH (09:08)
[2020-08-03] MEDS: allopurinoL 100 MG TABLET PO SCH (09:09)
[2020-08-03] MEDS: Cholecalciferol (D-3) 1,000 UNIT (25MCG) TABLET PO SCH (09:09)
[2020-08-03] MEDS: Gabapentin 100 MG CAPSULE PO SCH ×2 (09:09→20:32)
[2020-08-03] MEDS: Ascorbic Acid 500 MG TABLET PO SCH (09:09)
[2020-08-03] MEDS: amLODIPine 5 MG TABLET PO SCH (09:09)
[2020-08-03] MEDS: Cyanocobalamin (B-12) 1,000 MCG TABLET PO SCH (09:11)
[2020-08-03] MEDS: Multivit/Ca/Min/Fe/FA 1 TAB TABLET PO SCH (09:11)
[2020-08-03] MEDS: Insulin LISPRO 300 UNITS/3 ML VIAL SQ SCH (10:26)
[2020-08-03] MEDS: *HR* OxyCODONE/APAP 10/325 TABLET PO PRN ×2 (11:01→18:47)
[2020-08-04 05:24] LABS: Hematocrit 24.7 % (35.3-44.9); Hemoglobin 7.6 g/dL (11.5-15.4); Mean Corpuscular HGB Conc 30.8 g/dL (31.6-35.5); Mean Corpuscular Hemoglobin 29.2 pg (28.0-33.3); Mean Platelet Volume 10.5 fL (9.4-12.4); Platelet Count 165 K/mcL (140-400); Red Cell Distribution Width 17.2 % (11.5-14.5); White Blood Count 5.3 K/mcL (4.3-11.1)
[2020-08-04 05:41] LABS: Alanine Aminotransferase 18 Units/L (7-52); Albumin 2.7 g/dL (3.5-5.7); Albumin/Globulin Ratio 1.5 (1.1-2.2); Alkaline Phosphatase 52 Units/L (34-104); Aspartate Amino Transferase 24 Units/L (13-39); BUN/Creatinine Ratio 32 (6-26); Bilirubin,Total 1.3 mg/dL (0.3-1.0); Blood Urea Nitrogen 31 mg/dL (8-23); Calcium 8.2 mg/dL (8.6-10.3); Carbon Dioxide 33 mEq/L (23-29); Chloride 105 mEq/L (98-107); Globulin 1.8 g/dL (2.4-3.5); Glucose 105 mg/dL (70-105); Magnesium 1.4 mg/dL (1.6-2.6); Osmolality,Calculated 301 (280-300); Potassium 4.4 mEq/L (3.5-5.1); Sodium 142 mEq/L (136-145); Total Protein 4.5 g/dL (6.4-8.9); eGFR For African Americans > 60 (> 60); eGFR For Non-African Americans 55 (> 60)
[2020-08-04] MEDS: *HR* OxyCODONE/APAP 10/325 TABLET PO PRN ×2 (06:21→14:18)
[2020-08-04] MEDS: allopurinoL 100 MG TABLET PO SCH (10:14)
[2020-08-04] MEDS: Magnesium Oxide 400 MG TABLET PO SCH (10:14)
[2020-08-04] MEDS: Ascorbic Acid 500 MG TABLET PO SCH (10:14)
[2020-08-04] MEDS: Multivit/Ca/Min/Fe/FA 1 TAB TABLET PO SCH (10:14)
[2020-08-04] MEDS: Cholecalciferol (D-3) 1,000 UNIT (25MCG) TABLET PO SCH (10:14)
[2020-08-04] MEDS: amLODIPine 5 MG TABLET PO SCH (10:14)
[2020-08-04] MEDS: Gabapentin 100 MG CAPSULE PO SCH ×2 (10:14→20:39)
[2020-08-04] MEDS: Cyanocobalamin (B-12) 1,000 MCG TABLET PO SCH (10:14)
[2020-08-04] MEDS: *HR* Metformin 500 MG TABLET PO SCH (10:14)
[2020-08-05] MEDS: *HR* OxyCODONE/APAP 10/325 TABLET PO PRN ×3 (00:06→15:29)
[2020-08-05] MEDS: Multivit/Ca/Min/Fe/FA 1 TAB TABLET PO SCH (08:17)
[2020-08-05] MEDS: Ascorbic Acid 500 MG TABLET PO SCH (08:18)
[2020-08-05] MEDS: Cholecalciferol (D-3) 1,000 UNIT (25MCG) TABLET PO SCH (08:18)
[2020-08-05] MEDS: *HR* Metformin 500 MG TABLET PO SCH (08:18)
[2020-08-05] MEDS: amLODIPine 5 MG TABLET PO SCH (08:18)
[2020-08-05] MEDS: Cyanocobalamin (B-12) 1,000 MCG TABLET PO SCH (08:18)
[2020-08-05] MEDS: Magnesium Oxide 400 MG TABLET PO SCH (08:18)
[2020-08-05] MEDS: Gabapentin 100 MG CAPSULE PO SCH ×2 (08:18→20:56)
[2020-08-05] MEDS: allopurinoL 100 MG TABLET PO SCH (08:18)
[2020-08-05 10:48] LABS: Bilirubin,Urine Negative (Negative); Blood,Urine Negative (Negative); Clarity,Urine Clear (Clear); Color,Urine Yellow (Yellow); Glucose,Urine (UA) Normal (Normal); Ketones,Urine Negative (Negative); Leukocyte Esterase,Urine Large (Negative); Nitrite,Urine Negative (Negative); Protein,Urine Negative (Neg-Trace); Urobilinogen,Urine Normal (Normal)
[2020-08-05 11:26] LABS: Bacteria,Urine Many per hpf (None-Few); Squamous Epithelial Cell,Urine Few per hpf (None-Few); WBC,Urine 30-50 per hpf (0-3)
[2020-08-05] MEDS: Sennosides 8.6 MG TABLET PO SCH ×2 (11:49→20:57)
[2020-08-05 15:23] LABS: Basophils % 0.2 %; Eosinophils % 0.4 %; Hematocrit 28.3 % (35.3-44.9); Hemoglobin 8.7 g/dL (11.5-15.4); Immature Granulocytes % 2.2 % (0-4); Lymphocytes # 3.3 K/mcL (0.6-4.6); Lymphocytes % 41.2 %; Mean Corpuscular HGB Conc 30.7 g/dL (31.6-35.5); Mean Corpuscular Hemoglobin 29.6 pg (28.0-33.3); Mean Corpuscular Volume 96.3 fL (83.0-100.0); Mean Platelet Volume 10.5 fL (9.4-12.4); Monocytes # 0.5 K/mcL (0.0-1.3); Monocytes % 5.8 %; Nucleated Red Blood Cells 0.2 /100 WBC (0); Platelet Count 190 K/mcL (140-400); Red Blood Count 2.94 M/mcL (3.82-4.97); Red Cell Distribution Width 17.8 % (11.5-14.5); Segmented Neutrophils % 50.2 %; White Blood Count 8.1 K/mcL (4.3-11.1)
[2020-08-05 15:37] LABS: Alanine Aminotransferase 18 Units/L (7-52); Albumin 3.4 g/dL (3.5-5.7); Albumin/Globulin Ratio 1.6 (1.1-2.2); Alkaline Phosphatase 65 Units/L (34-104); Aspartate Amino Transferase 25 Units/L (13-39); BUN/Creatinine Ratio 30 (6-26); Bilirubin,Total 1.4 mg/dL (0.3-1.0); Blood Urea Nitrogen 32 mg/dL (8-23); Calcium 8.5 mg/dL (8.6-10.3); Carbon Dioxide 28 mEq/L (23-29); Chloride 103 mEq/L (98-107); Globulin 2.1 g/dL (2.4-3.5); Glucose 128 mg/dL (70-105); Osmolality,Calculated 301 (280-300); Potassium 4.5 mEq/L (3.5-5.1); Sodium 141 mEq/L (136-145); Total Protein 5.5 g/dL (6.4-8.9); eGFR For African Americans > 60 (> 60); eGFR For Non-African Americans 50 (> 60)
[2020-08-05 15:46] LABS: Neutrophils # 4.1 K/mcL (1.6-8.9)
[2020-08-05] MEDS: Nitrofurantoin (BID) 100 MG CAPSULE PO SCH (17:13)
[2020-08-06] MEDS: *HR* OxyCODONE/APAP 10/325 TABLET PO PRN ×3 (06:43→22:21)
[2020-08-06] MEDS: Ascorbic Acid 500 MG TABLET PO SCH (08:18)
[2020-08-06] MEDS: Sennosides 8.6 MG TABLET PO SCH ×2 (08:18→22:22)
[2020-08-06] MEDS: *HR* Metformin 500 MG TABLET PO SCH (08:18)
[2020-08-06] MEDS: Nitrofurantoin (BID) 100 MG CAPSULE PO SCH ×2 (08:18→16:40)
[2020-08-06] MEDS: amLODIPine 5 MG TABLET PO SCH (08:18)
[2020-08-06] MEDS: Cholecalciferol (D-3) 1,000 UNIT (25MCG) TABLET PO SCH (08:18)
[2020-08-06] MEDS: Gabapentin 100 MG CAPSULE PO SCH ×2 (08:19→22:19)
[2020-08-06] MEDS: Magnesium Oxide 400 MG TABLET PO SCH (08:19)
[2020-08-06] MEDS: Cyanocobalamin (B-12) 1,000 MCG TABLET PO SCH (08:19)
[2020-08-06] MEDS: Multivit/Ca/Min/Fe/FA 1 TAB TABLET PO SCH (08:19)
[2020-08-06] MEDS: allopurinoL 100 MG TABLET PO SCH (08:21)
[2020-08-07] MEDS: Sennosides 8.6 MG TABLET PO SCH ×2 (09:14→20:48)
[2020-08-07] MEDS: Gabapentin 100 MG CAPSULE PO SCH ×2 (09:15→20:29)
[2020-08-07] MEDS: allopurinoL 100 MG TABLET PO SCH (09:15)
[2020-08-07] MEDS: *HR* OxyCODONE/APAP 10/325 TABLET PO PRN ×2 (09:15→20:29)
[2020-08-07] MEDS: Ascorbic Acid 500 MG TABLET PO SCH (09:15)
[2020-08-07] MEDS: Nitrofurantoin (BID) 100 MG CAPSULE PO SCH ×2 (09:15→17:06)
[2020-08-07] MEDS: Multivit/Ca/Min/Fe/FA 1 TAB TABLET PO SCH (09:15)
[2020-08-07] MEDS: Magnesium Oxide 400 MG TABLET PO SCH (09:15)
[2020-08-07] MEDS: Cyanocobalamin (B-12) 1,000 MCG TABLET PO SCH (09:15)
[2020-08-07] MEDS: *HR* Metformin 500 MG TABLET PO SCH (09:15)
[2020-08-07] MEDS: amLODIPine 5 MG TABLET PO SCH (09:15)
[2020-08-07] MEDS: Cholecalciferol (D-3) 1,000 UNIT (25MCG) TABLET PO SCH (09:15)
[2020-08-08] MEDS: Sennosides 8.6 MG TABLET PO SCH ×2 (08:05→21:22)
[2020-08-08] MEDS: Cyanocobalamin (B-12) 1,000 MCG TABLET PO SCH (08:17)
[2020-08-08] MEDS: *HR* Metformin 500 MG TABLET PO SCH (08:17)
[2020-08-08] MEDS: amLODIPine 5 MG TABLET PO SCH (08:17)
[2020-08-08] MEDS: Ascorbic Acid 500 MG TABLET PO SCH (08:17)
[2020-08-08] MEDS: Nitrofurantoin (BID) 100 MG CAPSULE PO SCH (08:17)
[2020-08-08] MEDS: allopurinoL 100 MG TABLET PO SCH (08:17)
[2020-08-08] MEDS: Magnesium Oxide 400 MG TABLET PO SCH (08:17)
[2020-08-08] MEDS: Gabapentin 100 MG CAPSULE PO SCH ×2 (08:17→21:18)
[2020-08-08] MEDS: Multivit/Ca/Min/Fe/FA 1 TAB TABLET PO SCH (08:18)
[2020-08-08] MEDS: Cholecalciferol (D-3) 1,000 UNIT (25MCG) TABLET PO SCH (08:18)
[2020-08-08] MEDS: *HR* OxyCODONE/APAP 10/325 TABLET PO PRN ×2 (09:53→17:41)
[2020-08-08] MEDS: Sulfamethoxazole/Trimeth DS 1 EACH TABLET PO SCH ×2 (11:21→21:18)
[2020-08-09] MEDS: *HR* OxyCODONE/APAP 10/325 TABLET PO PRN ×2 (04:18→14:56)
[2020-08-09] MEDS: Sennosides 8.6 MG TABLET PO SCH ×2 (08:57→20:02)
[2020-08-09] MEDS: amLODIPine 5 MG TABLET PO SCH (08:57)
[2020-08-09] MEDS: Cholecalciferol (D-3) 1,000 UNIT (25MCG) TABLET PO SCH (08:57)
[2020-08-09] MEDS: Multivit/Ca/Min/Fe/FA 1 TAB TABLET PO SCH (08:58)
[2020-08-09] MEDS: *HR* Metformin 500 MG TABLET PO SCH (08:59)
[2020-08-09] MEDS: Magnesium Oxide 400 MG TABLET PO SCH (08:59)
[2020-08-09] MEDS: Gabapentin 100 MG CAPSULE PO SCH ×2 (08:59→20:00)
[2020-08-09] MEDS: Cyanocobalamin (B-12) 1,000 MCG TABLET PO SCH (08:59)
[2020-08-09] MEDS: allopurinoL 100 MG TABLET PO SCH (09:00)
[2020-08-09] MEDS: Sulfamethoxazole/Trimeth DS 1 EACH TABLET PO SCH ×2 (09:00→20:00)
[2020-08-09] MEDS: Ascorbic Acid 500 MG TABLET PO SCH (09:00)
[2020-08-10] MEDS: *HR* OxyCODONE/APAP 10/325 TABLET PO PRN (06:13)
[2020-08-10 07:29] VITALS: BP 120/70
[2020-08-10] MEDS: Cyanocobalamin (B-12) 1,000 MCG TABLET PO SCH (08:37)
[2020-08-10] MEDS: Ascorbic Acid 500 MG TABLET PO SCH (08:37)
[2020-08-10] MEDS: Sulfamethoxazole/Trimeth DS 1 EACH TABLET PO SCH (08:37)
[2020-08-10] MEDS: Sennosides 8.6 MG TABLET PO SCH (08:37)
[2020-08-10] MEDS: allopurinoL 100 MG TABLET PO SCH (08:37)
[2020-08-10] MEDS: Multivit/Ca/Min/Fe/FA 1 TAB TABLET PO SCH (08:37)
[2020-08-10] MEDS: Cholecalciferol (D-3) 1,000 UNIT (25MCG) TABLET PO SCH (08:37)
[2020-08-10] MEDS: Magnesium Oxide 400 MG TABLET PO SCH (08:38)
[2020-08-10] MEDS: amLODIPine 5 MG TABLET PO SCH (08:38)
[2020-08-10] MEDS: *HR* Metformin 500 MG TABLET PO SCH (08:39)
[2020-08-10] MEDS: Gabapentin 100 MG CAPSULE PO SCH (08:39)
== END 2020-08-10 13:30 | disposition home or self-care (01) | DRG 560 ==
LOC: INPGRE 07-23 17:41
PROVIDERS: ADMIT Family Medicine; ATTEND Family Medicine